=== PATIENT | female | born 1975 | race Caucasian/White ===

== ENCOUNTER → 2019-02-10 13:39 | Outpatient (CLI) | payer OTHER, MEDICAID, SELFPAY ==
--- NOTE | 2019-02-10 | DI.MG.S_ITS ---
BILATERAL DIGITAL DIAGNOSTIC MAMMOGRAM 3D/2D: 02/10/2019 CLINICAL: Baseline exam. Bilateral diffuse cyclical breast pain. No prior exams were available for comparison. The tissue of both breasts is extremely dense, which lowers the sensitivity of mammography. There is a circular molemarker overlying the left breast. No significant masses, calcifications, or other findings are seen in either breast. There are no underlying masses or abnormalities to explain patient's diffuse bilateral breast pain. As the pain is diffuse and the patient cannot localize a focal area of concern, a targeted ultrasound cannot be performed for further evaluation. Previously noted seen on comparison screening mammogram resolves with additional views and likely represented superimposition of benign anatomic tissues. IMPRESSION: NEGATIVE 1) No mammographic abnormalities to explain patient's diffuse bilateral breast pain. Recommend clinical follow-up for further evaluation and management. 2) There is no mammographic evidence of malignancy in either breast. Return to annual mammogram screening schedule is recommended. The patient is advised to monitor the area and to return sooner for reevaluation if she feels anything grow or change in her breasts. This exam was interpreted at Station ID: [id number]. NOTE: For mammograms, a report in lay terms will be sent to the patient. Approximately 15% of breast malignancies will not be visualized mammographically. In the management of a palpable breast mass, a negative mammogram must not discourage biopsy of a clinically suspicious lesion. Electronically Signed By: Rodríguez Johnson M.D. ecl/:02/10/2019 14:53:27 letter sent: Clinical Evaluation ACR BI-RADS Category 1: Negative 3341F
== END ==
PROVIDERS: Family Provider Family Medicine; PCP Family Medicine; Visit Provider Family Medicine
DX: N64.4 Mastodynia (principal)
CPT/HCPCS: 77066; G0279

== ENCOUNTER 2019-08-25 11:33 | Day surgery (SDC) | payer OTHER, MEDICAID, SELFPAY ==
[2019-08-25] VITALS (9 sets, daily range): BP systolic 99–114; BP diastolic 61–69; PULSE 56–83; RESP 8–19; TEMP 36.6–37.4; O2SAT 99–100; BMI 19.9
--- NOTE | 2019-08-25 | PATH_ITS ---
[facility] Accession Number: [id number] . 01 Material submitted: . colon - RANDOM COLON BX . 01 Clinical history: . LOOSE STOOLS . 02 Diagnosis: Random Colon, Biopsy: Colonic mucosa with no diagnostic abnormality. Negative for active, chronic and microscopic colitis. Negative for dysplasia and malignancy. MRV 08/26/2019 1251 Local . 02 Electronically signed: . Dannielle Cintron MD, Pathologist NPI- [id number] . 01 Gross description: . RANDOM COLON BX: Received in formalin are 3 fragment(s) of galarza, soft tissue measuring 0.2 x 0.1 x 0.1 cm to 0.3 x 0.3 x 0.3 cm submitted entirely in 1 cassette(s) /[facility] 08/25/2019 2145 Local . 02 Pathologist provided ICD-10: R19.7 . 02 CPT . 930597 Performed at: 01 [facility] [address] [facility], [place], [place] [id number] MD Mauri Agarwal MD Phone: [phone] Performed at: 02 [facility] [address] [place], [place] [id number] MD Dannielle Cintron MD Phone: [phone]
--- NOTE | 2019-08-25 12:17 | PM.HP.1 ---
History of Present Illness History of Present Illness Date Patient Seen: 08/25/19 Time Patient Seen: 12:18 Chief complaint: [id number] COLONOSCOPY Narrative: Bloating and change in bowel movements rule out Crohn's disease Meds Home Medications and Allergies Allergies Allergy/AdvReac Type Severity Reaction Status Date / Time cephalexin Allergy Unknown Verified 08/24/19 13:15 Exam Narrative Exam Narrative: Oropharynx free of lesions Chest clear to auscultation percussion Cardiac exam reveals no S3 or murmur Assessment & Plan Assessment & Plan narrative: Change in bowel movements with significant bloating on the background of possible irritable bowel syndrome. Rule out underlying Crohn's disease. Risks, benefits, alternatives colonoscopy have been explained. Random biopsies be taken. Further recommendations will follow the results the study.
--- NOTE | 2019-08-25 12:19 | PM.OP.ENDO ---
Operative Date/Time/Diagnoses Date of procedure: 08/25/19 Time of procedure: 12:19 Pre-op diagnosis: See indication and findings Procedure & Clinicians Study performed: Colonoscopy Same procedure as scheduled: Yes Indications: Abnormal bowel movements Surgeon: Christian Fulton Procedure Notes Procedure in detail: After informed consent was obtained the patient placed in left lateral decubitus position. The video colonoscope was introduced the rectum slowly advanced to the cecum. On slow withdrawal mucosa was carefully examined. The scope was removed. The patient tolerated the procedure well. Blood loss none Complications none Sedation Total sedation time 22 minutes Versed 8 mg fentanyl 150 mg IV titration Findings 1. Normal terminal ileum 2. Normal colonoscopy to cecum. Random biopsies taken to rule out microscopic colitis We will follow up by telephone
[2019-08-25] MEDS: SODIUM CHLORIDE 0.9% 1,000 ML 42 ML IV ×2 (12:40→13:32)
[2019-08-25] MEDS: MIDAZOLAM 5 MG/5 ML VIAL IV (13:24)
--- NOTE | 2019-08-25 13:24 | SUR.OPER ---
Fentanyl dose was 100 not 150. Miscommunication with medication RN
[2019-08-25] MEDS: fentaNYL 250 MCG/5 ML INJ IV (13:25)
--- NOTE | 2019-08-25 13:50 | SUR.PHASEI ---
PT D/O PAIN IN HER BELLY, STATING IT FEELS VERY DISTENDED, ABDOMEN IS SOFT AND NON DISTENDED, +BOWEL SOUNDS AUSCULTATED.
--- NOTE | 2019-08-25 14:09 | SUR.PHASEI ---
DR ARREAGA IN TON
--- NOTE | 2019-08-25 14:10 | SUR.PHASEI ---
DR ARREAGA IN TO SEE PT AND ASSESS, PT STATES SHE IS FEELING A LITTLE BETTER, PT NOT YET READY FOR ORAL FLUIDS
--- NOTE | 2019-08-25 14:17 | SUR.PHASEII ---
Into phase II, HOB elevated & sips of water given. Declines to have friend come back at this time - just prefers to rest. Resp unlabored, skin warm and dry. Stated that pain was improving when lying on her back.
--- NOTE | 2019-08-25 15:18 | SUR.PHASEII ---
1450 States that she feels ready to go home. VSS, States that she needs to void. IV dc'd, clothing given.
== END 2019-08-25 15:05 | disposition home or self-care (01) ==
LOC: ENDO 11:35
PROVIDERS: Family Provider Family Medicine; PCP Family Medicine; Visit Provider Internal Medicine Gastroenterology
PROC: 0DJD8ZZ Inspection of Lower Intestinal Tract, Via Natural or Artificial Opening Endoscopic (ICD-10-PCS; CPT 45378; principal; 2019-08-25 13:00)
DX: R19.7 Diarrhea, unspecified (principal); R14.0 Abdominal distension (gaseous)
CPT/HCPCS: 45380; J2250; J3010

== ENCOUNTER → 2021-01-31 10:49 | Outpatient (CLI) | payer OTHER, MEDICAID, SELFPAY ==
--- NOTE | 2021-01-31 | DI.MG.S_ITS ---
BILATERAL DIGITAL SCREENING MAMMOGRAM 3D/2D WITH CAD: 01/31/2021 CLINICAL: Routine screening. Comparison is made to exam dated: 02/10/2019 [facility]. The tissue of both breasts is extremely dense, which lowers the sensitivity of mammography. Current study was also evaluated with a Computer Aided Detection (CAD) system. No significant masses, calcifications, or other findings are seen in either breast. There has been no significant interval change. IMPRESSION: NEGATIVE There is no mammographic evidence of malignancy. A 1 year screening mammogram is recommended. This exam was interpreted at Station ID: [id number]. NOTE: For mammograms, a report in lay terms will be sent to the patient. Approximately 15% of breast malignancies will not be visualized mammographically. In the management of a palpable breast mass, a negative mammogram must not discourage biopsy of a clinically suspicious lesion. Electronically Signed By: Ema farias/felicita:01/31/2021 11:50:42 letter sent: Normal Exam ACR BI-RADS Category 1: Negative 3341F
== END ==
PROVIDERS: Family Provider Family Medicine; PCP Family Medicine; Referring Provider Family Medicine; Visit Provider Family Medicine
DX: Z12.31 Encounter for screening mammogram for malignant neoplasm of breast (principal)
CPT/HCPCS: 77063; 77067

== ENCOUNTER 2023-03-21 10:30 | Outpatient (RCR) | payer OTHER, MEDICAID, SELFPAY ==
--- NOTE | 2023-03-12 13:21 | PT.OPPOC ---
Physical, Occupational & Speech Therapy At [facility] Current Diagnoses Benign paroxysmal vertigo, unspecified ear (03/12/23) Visit Care Team Role Provider Type Serge Rubin MD Attending Provider Physician Family Provider Primary Care Provider Referring Provider Specialty: Family Practice Address: [address] [place] [address], [address] Email: [email or web address] Plan Of Care PT-OP-T Assessment and Plan Start: 03/11/23 14:28 Freq: Status: Active Protocol: Document 03/12/23 11:59 AMB (Rec: 03/12/23 13:20 AMB [id number]) Physical Therapy Assessment Rehab Potential Rehabilitation Potential Good Evaluation Complexity Number of Personal Factors/Comorbidities 0 Number of Body Systems Impaired 1-2 Clinical Presentation at Evaluation Stable Impairments Impairments Vestibular Goals One Impairment Dizziness Short Term Goal (STG) Kim will be able to perform all bed mobility and work activities without dizziness. STG Duration 6 weeks Assessment Summary Assessment Kim attends physical therapy with a couple weeks of dizziness. She had tried a self Bridgette manever to the left on Friday, and did feels some dizziness with looking up in the shower today. PT eval was negative for reproduction of sx. No nystagmus with DixHallpike, no dizziness with walking with head turns or VOR. Plausible pt self corrected BPPV with self Bridgette and now is testing negative. Educated sx of feeling off can linger for a few days/week after successful BPPV treatment, pt to return in one week for follow up to make sure all sx are resolved. Physical Therapy Plan Frequency and Duration Frequency of Treatment 1x/Week Duration of treatment (weeks) 6 Plan of Care Start Date 03/12/23 Plan of Care End Date 04/23/23 Therapeutic Interventions Therapeutic Interventions Balance Training,Home Exercise Program,Manual Therapy, Neuromuscular Re-education, Self-Care/Home Management, Therapeutic Activities, Therapeutic Exercises Next Visit Focus/Plan Next Note Type Treatment Note Next Visit Plan Recheck Larisa Hallpike, does any vestibular testing reproduce sx. Plan of Care Dates Plan of Care Start Date 03/12/23 Plan of Care End Date 04/23/23 Electronically Signed by: Pallavi Busch, PT 03/12/23 1321 If you are in agreement with this Plan of Care, please return a signed and dated copy. I have reviewed this Plan of Care and certify that the skilled therapy services above are required to meet the patient?s needs. Physician Signature Date Printed Name and Credentials Clinical Instructor Signature Printed Name and Credentials
--- NOTE | 2023-03-12 13:21 | PT.OIE ---
Current Diagnoses Benign paroxysmal vertigo, unspecified ear (03/12/23) Visit Care Team Role Provider Type Serge Rubin MD Attending Provider Physician Family Provider Primary Care Provider Referring Provider Specialty: Family Practice Address: [address] [place] [address] [place], [facility] Email: [email or web address] Physical Therapy Initial Evaluation PT-OP-A Visit Information Start: 03/11/23 14:28 Freq: Status: Active Protocol: Document 03/12/23 11:59 AMB (Rec: 03/12/23 13:20 AMB [id number]) Out-Patient Physical Therapy Visit Information Visit Information Visit Type Initial Evaluation Visit Start Time 12:00 Visit Stop Time 12:45 Total Visit Minutes 45 Visit Number 1 PT-OP-B Current Condition Start: 03/11/23 14:28 Freq: Status: Active Protocol: Document 03/12/23 11:59 AMB (Rec: 03/12/23 13:20 AMB [id number]) Current Condition History of Current Condition Onset Date 3-4 weeks of dizziness Current Complaints spinning dizziness History of Current Condition Spinning with rolling over in bed was bad the first day with nausea, couldn't get out of bed, feels like it's worse to the the left. Did try a self Bridgette on Friday, still feeling sx. Worst when bending down and looking up (works at [employer]) and rolling over in bed. Does have history of lightheadedness/ low blood pressure but reports this is different. PT-OP-C Subjective Start: 03/11/23 14:28 Freq: Status: Active Protocol: Document 03/12/23 11:59 AMB (Rec: 03/12/23 13:20 AMB [id number]) Patient Questionnaires Dizziness Handicap Inventory DHI Score 40 DHI Functional Impairment 40 to 59% Impaired (Score 40- 59) PT-OP-O Vestibular Start: 03/11/23 14:28 Freq: Status: Active Protocol: Document 03/12/23 11:59 AMB (Rec: 03/12/23 13:20 AMB [id number]) Vestibular Assessment Visual Testing Smooth Pursuits Horizontal WFL Smooth Pursuits Vertical WFL Saccades Horizontal WFL Saccades Vertical WFL DVA (Line Degradation) 2 Positional Testing [place]-Hallpike Negative Left,Negative Right Rolling Test Negative Left,Negative Right Vestibular Function Tests Fukuda Test mild turn to the left, less than 45 degrees Comments Vestibular Comments Originally thrust test was positive R, but then wiht repeat testing pt performed normally. PT-OP-T Assessment and Plan Start: 03/11/23 14:28 Freq: Status: Active Protocol: Document 03/12/23 11:59 AMB (Rec: 03/12/23 13:20 AMB [id number]) Physical Therapy Assessment Rehab Potential Rehabilitation Potential Good Evaluation Complexity Number of Personal Factors/Comorbidities 0 Number of Body Systems Impaired 1-2 Clinical Presentation at Evaluation Stable Impairments Impairments Vestibular Goals One Impairment Dizziness Short Term Goal (STG) Kim will be able to perform all bed mobility and work activities without dizziness. STG Duration 6 weeks Assessment Summary Assessment Kim attends physical therapy with a couple weeks of dizziness. She had tried a self Bridgette maneuver to the left on Friday, and did feels some dizziness with looking up in the shower today. PT eval was negative for reproduction of sx. No nystagmus with DixHallpike, no dizziness with walking with head turns or VOR. Plausible pt self corrected BPPV with self Bridgette and now is testing negative. Educated sx of feeling off can linger for a few days/week after successful BPPV treatment, pt to return in one week for follow up to make sure all sx are resolved. Physical Therapy Plan Frequency and Duration Frequency of Treatment 1x/Week Duration of treatment (weeks) 6 Plan of Care Start Date 03/12/23 Plan of Care End Date 04/23/23 Therapeutic Interventions Therapeutic Interventions Balance Training,Home Exercise Program,Manual Therapy, Neuromuscular Re-education, Self-Care/Home Management, Therapeutic Activities, Therapeutic Exercises Next Visit Focus/Plan Next Note Type Treatment Note Next Visit Plan Recheck Larisa Hallpike, does any vestibular testing reproduce sx.
--- NOTE | 2023-03-21 11:08 | PT.OTN ---
Current Diagnoses Benign paroxysmal vertigo, unspecified ear (03/21/23) Physical Therapy Treatment Note PT-OP-A Visit Information Start: 03/11/23 14:28 Freq: Status: Active Protocol: Document 03/21/23 10:30 DCW (Rec: 03/21/23 11:08 DCW [id number]) Out-Patient Physical Therapy Visit Information Visit Information Visit Type Treatment Note Visit Start Time 10:30 Visit Stop Time 11:00 Total Visit Minutes 30 Visit Number 2 PT-OP-B Current Condition Start: 03/11/23 14:28 Freq: Status: Active Protocol: Document 03/12/23 11:59 AMB (Rec: 03/12/23 13:20 AMB [id number]) Current Condition History of Current Condition Onset Date 3-4 weeks of dizziness Current Complaints spinning dizziness History of Current Condition Spinning with rolling over in bed was bad the first day with nausea, couldn't get out of bed, feels like it's worse to the the left. Did try a self Bridgette on Friday, still feeling sx. Worst when bending down and looking up (works at [employer]) and rolling over in bed. Does have history of lightheadedness/ low blood pressure but reports this is different. PT-OP-C Subjective Start: 03/11/23 14:28 Freq: Status: Active Protocol: Document 03/21/23 10:30 DCW (Rec: 03/21/23 11:08 DCW [id number]) OP-PT Subjective Patient Comments Patient Comments Day-to-day I'm still feeling better, but there are still instances every now and then when I'm exerciseing and going standing to laying down or getting back up. Does have a video she took of herself 5/12 lying back when outside which appears to show nystagmus. PT-OP-O Vestibular Start: 03/11/23 14:28 Freq: Status: Active Protocol: Document 03/21/23 10:30 DCW (Rec: 03/21/23 11:08 DCW [id number]) Vestibular Assessment Positional Testing Rose-Hallpike Negative Right Rolling Test Negative Left,Negative Right Comments Vestibular Comments Potentially mildly positive left Hallpike, pt noted very very slight vertigo and therapist noted a single beat of nystagmus, so brief that it was difficult to determine directionality. PT-OP-Q Treatments Start: 03/11/23 14:28 Freq: Status: Active Protocol: Document 03/21/23 10:30 DCW (Rec: 03/21/23 11:08 DCW [id number]) Canalithic Repositioning BPPV Treatment Bridgette Affected Canal(s) Left Posterior? Reps x2 Comments Modified Bridgette PT-OP-T Assessment and Plan Start: 03/11/23 14:28 Freq: Status: Active Protocol: Document 03/21/23 10:30 DCW (Rec: 03/21/23 11:08 DCW [id number]) Physical Therapy Assessment Impairments Impairments Vestibular Goals One Impairment Dizziness Short Term Goal (STG) Kim will be able to perform all bed mobility and work activities without dizziness. STG Duration 6 weeks Assessment Summary Assessment Pt continue to report mild subjective symptoms fairly consistent with BPPV. Noticeable but very brief nystagmus today in left Hallpike, too brief to determine true directionality, however do to the very large odds of posterior canal BPPV vs horizontal or anterior canal, a left modified Bridgette was performed. Further testing was negative for any further nystagmus, but pt did not an odd feeling, so a second Bridgette was performed. Pt preferred to call for a follow -up within the next few weeks if symptoms continue, not scheduling any further appointments at this point. Physical Therapy Plan Frequency and Duration Frequency of Treatment 1x/Week Duration of treatment (weeks) 6 Plan of Care Start Date 03/12/23 Plan of Care End Date 04/23/23 Therapeutic Interventions Therapeutic Interventions Balance Training,Home Exercise Program,Manual Therapy, Neuromuscular Re-education, Self-Care/Home Management, Therapeutic Activities, Therapeutic Exercises Next Visit Focus/Plan Next Note Type Treatment Note Next Visit Plan Recheck Rose Hallpike, does any vestibular testing reproduce sx.
--- NOTE | 2023-06-04 13:27 | PT.OPDS ---
Current Diagnoses Benign paroxysmal vertigo, unspecified ear (03/21/23) Visit Care Team Role Provider Type Serge Rubin MD Attending Provider Physician Family Provider Primary Care Provider Referring Provider Specialty: Family Practice Address: [address] [place] [address], [facility] [place], [facility] Email: [email or web address] Visit Number Visit Number 2 Discharge Summary PT-OP-B Current Condition Start: 03/11/23 14:28 Freq: Status: Active Protocol: Document 03/12/23 11:59 AMB (Rec: 03/12/23 13:20 AMB [id number]) Current Condition History of Current Condition Onset Date 3-4 weeks of dizziness Current Complaints spinning dizziness History of Current Condition Spinning with rolling over in bed was bad the first day with nausea, couldn't get out of bed, feels like it's worse to the the left. Did try a self Bridgette on Friday, still feeling sx. Worst when bending down and looking up (works at [employer]) and rolling over in bed. Does have history of lightheadedness/ low blood pressure but reports this is different. PT-OP-C Subjective Start: 03/11/23 14:28 Freq: Status: Active Protocol: Document 03/21/23 10:30 DCW (Rec: 03/21/23 11:08 DCW [id number]) OP-PT Subjective Patient Comments Patient Comments Day-to-day I'm still feeling better, but there are still instances every now and then when I'm exerciseing and going standing to laying down or getting back up. Does have a video she took of herself /12 lying back when outside which appears to show nystagmus. PT-OP-O Vestibular Start: 03/11/23 14:28 Freq: Status: Active Protocol: Document 03/21/23 10:30 DCW (Rec: 03/21/23 11:08 DCW [id number]) Vestibular Assessment Positional Testing [place]-Hallpike Negative Right Rolling Test Negative Left,Negative Right Comments Vestibular Comments Potentially mildly positive left Hallpike, pt noted very very slight vertigo and therapist noted a single beat of nystagmus, so brief that it was difficult to determine directionality. PT-OP-T Assessment and Plan Start: 03/11/23 14:28 Freq: Status: Active Protocol: Document 06/04/23 13:27 SEDA (Rec: 06/04/23 13:27 [facility] [id number]) Physical Therapy Assessment Assessment Summary Assessment Pt did not follow up after being seen for two visits and is now d/katelynn.
== END 2023-06-05 12:07 | disposition home or self-care (01) ==
LOC: PHYS 10:30
PROVIDERS: Family Provider Family Medicine; PCP Family Medicine; Referring Provider Family Medicine; Visit Provider Family Medicine
DX: H81.10 Benign paroxysmal vertigo, unspecified ear (principal)
CPT/HCPCS: 95992; 97140; 97161

== ENCOUNTER → 2024-02-11 11:58 | Outpatient (CLI) | payer OTHER, MEDICAID, SELFPAY ==
--- NOTE | 2024-02-11 | DI.RAD.S_ITS ---
PROCEDURE: XR SHOULDER RT MIN 2V INDICATIONS: PAIN IN R SHOULDER TECHNIQUE: 3 views of the shoulder were acquired. COMPARISON: None. FINDINGS: Bones: No fractures or dislocations. No suspicious bony lesions. Visualized ribs appear intact. Minimal acromioclavicular narrowing. Soft tissues: No suspicious soft tissue calcifications. IMPRESSION: Minimal acromioclavicular narrowing Dictated by: Hawa Wilkinson M.D. on 02/11/2024 at 15:29 Approved by: Hawa Wilkinson M.D. on 02/11/2024 at 15:44
--- NOTE | 2024-02-11 | DI.RAD.S_ITS ---
PROCEDURE: XR KNEE RT 3V INDICATIONS: PAIN IN R KNEE TECHNIQUE: 3 views of the knee were acquired. COMPARISON: None. FINDINGS: Bones: No fractures or dislocations. No suspicious bony lesions. Soft tissues: Minimal joint effusion. No suspicious soft tissue calcifications. IMPRESSION: Minimal effusion. No visualized acute fracture or dislocation. However, if clinical concern and/or pain persist, short interval imaging followup in 7-10 days is recommended, as occult injury cannot be definitively excluded. Dictated by: Hawa Wilkinson M.D. on 02/11/2024 at 15:28 Approved by: Hawa Wilkinson M.D. on 02/11/2024 at 15:29
== END ==
LOC: RAD 12:01
PROVIDERS: Family Provider Family Medicine; PCP Family Medicine; Referring Provider Family Medicine; Visit Provider Family Medicine
DX: M25.561 Pain in right knee (principal); M25.511 Pain in right shoulder
CPT/HCPCS: 73030; 73562

== ENCOUNTER → 2024-04-23 07:44 | Outpatient (CLI) | payer OTHER, MEDICAID, SELFPAY ==
--- NOTE | 2024-04-23 07:46 | DI.MRI.S_ITS ---
PROCEDURE: MR SHOULDER RT WO CON INDICATIONS: ACUTE PAIN OF RT SHOULDER TECHNIQUE: Noncontrast oblique coronal T2 fast spin echo with fat saturation, oblique sagittal T1 spin echo and T2 fast spin echo with fat saturation, axial T1 spin echo and T2 fast spin echo with fat saturation through the shoulder. COMPARISON: [facility], CR, XR SHOULDER RT MIN 2V, 02/11/2024, 12:02. FINDINGS: Image quality: Excellent. Rotator cuff: There is low-grade partial thickness tear of the supraspinatus along the bursal surface. The infraspinatus and subscapularis tendons appear intact. There is mild supraspinatus, infraspinatus and subscapularis tendinosis. Sagittal images demonstrate no muscle atrophy. Bones and bursae: No bone marrow contusions or fractures. Moderate acromioclavicular joint degeneration. Reactive edema is noted in the distal clavicle and acromion. The acromion demonstrates conventional anatomy, without an os acromiale. No pathologic subacromial-subdeltoid or subcoracoid bursal fluid is present. Capsule and soft tissues: There is posterior labral tear and paralabral cysts at 5:00. The long head of the biceps tendon demonstrates normal location and morphology. The rotator interval appears normal, without fibrosis. The coracohumeral ligament is normal in thickness. IMPRESSION: 1. Mild supraspinatus, infraspinatus and subscapularis tendinosis. There is low-grade partial-thickness tear of the supraspinatus tendon involving the bursal surface. No high-grade tendon tear or tendon retraction. No muscle atrophy. 2. Moderate acromioclavicular arthrosis. 3. Posterior labral tear with paralabral cysts. Dictated by: Libby Cheema M.D. on 04/23/2024 at 16:55 Approved by: Libby Cheema M.D. on 04/24/2024 at 15:50
== END ==
LOC: MRI 07:44
PROVIDERS: Family Provider Family Medicine; PCP Family Medicine; Referring Provider Family Medicine; Visit Provider Family Medicine
DX: M75.111 Incomplete rotator cuff tear or rupture of right shoulder, not specified as traumatic (principal); M19.011 Primary osteoarthritis, right shoulder; S43.431A Superior glenoid labrum lesion of right shoulder, initial encounter; M25.511 Pain in right shoulder
CPT/HCPCS: 73221

== ENCOUNTER → 2024-08-06 07:57 | Outpatient (CLI) | payer OTHER, MEDICAID, SELFPAY ==
--- NOTE | 2024-08-06 07:57 | DI.MG.S_ITS ---
BILATERAL DIGITAL SCREENING MAMMOGRAM 3D/2D WITH CAD: 08/06/2024 CLINICAL: Routine screening. Comparison is made to exams dated: 01/31/2021 mammogram and 02/10/2019 mammogram - [facility]. The breasts are heterogeneously dense, which may obscure small masses (category c / 51-75% glandular tissue). Current study was also evaluated with a Computer Aided Detection (CAD) system. No significant masses, calcifications, or other findings are seen in either breast. There has been no significant interval change. IMPRESSION: NEGATIVE There is no mammographic evidence of malignancy. A 1 year screening mammogram is recommended. Based on the Tyrer Cuzick model (a risk assessment model) the patient's lifetime risk is 13.0% and her 10 year risk is 2.6%. According to the ACR, ACS, and NCCN guidelines, an annual breast MRI exam along with mammogram is recommended if the patient's lifetime risk is 20% or greater. This exam was interpreted at Station ID: [id number]. NOTE: For mammograms, a report in lay terms will be sent to the patient. Approximately 15% of breast malignancies will not be visualized mammographically. In the management of a palpable breast mass, a negative mammogram must not discourage biopsy of a clinically suspicious lesion. Electronically Signed By: Hipolito roblero/felicita:08/06/2024 08:57:30 letter sent: Normal Exam ACR BI-RADS Category 1: Negative
== END ==
PROVIDERS: Family Provider Family Medicine; PCP Family Medicine; Referring Provider Family Medicine; Visit Provider Family Medicine
DX: Z12.31 Encounter for screening mammogram for malignant neoplasm of breast (principal); R92.333 Mammographic heterogeneous density, bilateral breasts
CPT/HCPCS: 77063; 77067

== ENCOUNTER 2024-08-10 13:00 | Outpatient (RCR) | payer OTHER, MEDICAID, SELFPAY ==
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
--- NOTE | 2024-04-15 10:18 | PT-OP ANOTE ---
Pt did not show for today's appt, called and stated forgot about appt. She states R shld still bothersome R side neck, anterior and top of R shoulder, only able to perform exercises few reps before tires or causes discomfort 1x/day, what can manage in personal schedule. She reports not good body awareness and if in correct for and know low rep can manage. Still awaiting scheduling MRI R shld.
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
--- NOTE | 2024-04-30 16:36 | PT-OP ANOTE ---
LENS CUTTER called pt, left voice message about pt discussed in tx today wanting wait to see PT currently scheduled for 05/[address] appt 05/05, until find out her MRI results of R shld. LENS CUTTER mentioned PT [facility] currently has an opening 05/10 and 05/11 if want to reschedule. Dr appt may affect PT treatment, best see PT next tx. Asked pt to call back Friday to update change in appts. If we don't receive voice message 05/03/24, suggested schedulers to call pt and suggest pt update appt to suggested above PT appt date opening if still available.
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
--- NOTE | 2024-05-04 18:54 | PT-OP ANOTE ---
Per phone message received, pt saw referring physician and was instructed to continue PT until she can be seen by an orthopedic physician. Pt will plan on attending her next scheduled visit. Discussion of available visits to be done.
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
== END 2024-08-13 14:24 | disposition home or self-care (01) ==
LOC: PHYS 13:00
PROVIDERS: Family Provider Family Medicine; PCP Family Medicine; Referring Provider Family Medicine; Visit Provider Family Medicine
DX: M25.511 Pain in right shoulder (principal); M25.561 Pain in right knee; M62.81 Muscle weakness (generalized)
CPT/HCPCS: 97035; 97110; 97112; 97140; 97162; 97535

== ENCOUNTER → 2025-01-13 13:30 | Outpatient (CLI) | payer OTHER, SELFPAY ==
--- NOTE | 2025-02-02 09:06 | DIET.CONS ---
Dietary Consultation Note Consult date: 01/13/25 Assessment: 49 y F referred for IBS. Pt reports IBS symptoms and following low FODMAPs dietary plan for years, since giardia infection after traveling. Would like to consider trying a reintroduction phase but is hesitant d/t previous unsuccessful attempts, unsure appropriate amounts or types of food to start with. Started on low fodmaps in 2018 and had symptom improvement, now no symptoms on low fodmaps. Would like to expand options, but has symptoms every time of trying new food. Symptoms include bloating, cramps, gas, diarrhea after eating small portion of fodmap containing food. Normally on low fodmaps has regular BMs Rice, breads, quinoa result in painful stomach cramps and constipation for 1-2 days. Diet recall: 1030: porriage, nuts and seeds and blueberries L-salad with spinach, carrot, zucchini and homemade dressing D-chicken and vegs or chickpea velasco pasta (only 1.5 oz toelrated) or chicken fajitas and carballo peppers with speciality seasoning [place] milk and water Ht: - Wt: 61.235 kg on 07/14/24 Nutrition Diagnosis: Altered GI function r/t high FODMAPs foods triggering GI distress aeb pt reports intake of any foods besides low FODMAP foods trigger bloating, cramps, gas, diarrhea or constipation Interventions: Discussed the following: -Completed assessment, discussing symptoms and tolerated foods -FODMAPs categorizes and foods in each -Reintroduction phase and resources Goals: pt to determine if still wants to proceed with reintroduction and foods she would like to reintroduce in the fodmap categories Monitoring/Evaluations: f/u in 2 wks Electronically Signed by: Tatiana Aden 02/02/25 09:06 Clinical Dietitian [address] [id number]
== END ==
PROVIDERS: Family Provider Family Medicine; PCP Family Medicine; Referring Provider Family Medicine
DX: K58.9 Irritable bowel syndrome, unspecified (principal); Z71.3 Dietary counseling and surveillance
CPT/HCPCS: 97802

== ENCOUNTER → 2025-02-04 13:30 | Outpatient (CLI) | payer OTHER, SELFPAY ==
--- NOTE | 2025-02-07 15:36 | DIET.OUTPTC ---
Dietary Outpatient Consultation Note Consultation Date: 02/04/2025 Assessment: 49 y F referred for IBS. Pt with additional questions on reintroduction phase, fodmaps stacking, protein needs, and energy intake for exercise. Does moderate to vigorous cycling 2x/wk for >1hr. Diet recall: 1030: porridge, nuts and seeds and blueberries L-salad with spinach, carrot, zucchini and homemade dressing D-chicken and vegs or chickpea velasco pasta (only 1.5 oz tolerated) or chicken fajitas and carballo peppers with speciality seasoning [place] milk and water Ht: - Wt: 61.235 kg on 07/14/24 Nutrition Diagnosis: Altered GI function r/t high FODMAPs foods triggering GI distress aeb pt reports intake of any foods besides low FODMAP foods trigger bloating, cramps, gas, diarrhea or constipation Interventions: Discussed the following: -Protein goals (1-1.25 g/kg based on age and activity) -Reintroduction phase, categories of fodmaps foods to trial in reintroduction phase -Including protein based food with carbs post workout Goals: -Trial reintroduction phase using handouts provided as guide -Include protein source post workout and in salads Monitoring/Evaluations: f/u as needed Electronically Signed by: Tatiana Aden 02/07/25 15:36 Clinical Dietitian [address] [address]
== END ==
PROVIDERS: Family Provider Family Medicine; PCP Family Medicine; Referring Provider Family Medicine
DX: K58.2 Mixed irritable bowel syndrome (principal); Z71.3 Dietary counseling and surveillance
CPT/HCPCS: 97803